=== PATIENT | male | born 1995 | race Caucasian/White ===

== ENCOUNTER 2022-03-18 05:08 | Emergency (ER) | payer BC, OTHER ==
[2022-03-18] MEDS ORDERED: Ondansetron 4 MG Tab.DIS PO ONE (06:01)
[2022-03-18 06:17] LABS: CORONAVIRUS COVID-19 NAA NEGATIVE (NEGATIVE)
[2022-03-18] MEDS ORDERED: Sodium Chloride 0.9% 1,000 ML IV ONE (06:38)
[2022-03-18] MEDS ORDERED: Acetaminophen 325 MG Tab PO ONE (06:50)
== END 2022-03-18 07:50 | disposition home or self-care (01) ==
LOC: JD.ED 05:08
DX: J10.1 Influenza due to other identified influenza virus with other respiratory manifestations (principal); Z20.822 Contact with and (suspected) exposure to COVID-19
CPT/HCPCS: 0240U; 96360; 99283; A9270; J7030